=== PATIENT | female | born 1985 | race Caucasian/White ===

== ENCOUNTER 2019-11-11 04:53 | Emergency (ER) | payer BC, OTHER, MEDICAID ==
[~2019-11-11] VITALS: Ht 154.9 cm; Wt 104.3 kg
[2019-11-11] MEDS ORDERED: HYDROCODON-ACE1 EAC8 PO (05:12)
[2019-11-11] MEDS ORDERED: CEPHALEXIN500 MG PO (05:12)
[2019-11-11 05:18] VITALS: BP 145/66
== END 2019-11-11 05:18 | disposition home or self-care (01) ==
LOC: M.ERS 04:53
DX: K08.89 Other specified disorders of teeth and supporting structures (principal); Z88.0 Allergy status to penicillin

== ENCOUNTER 2021-07-23 02:36 | Emergency (ER) | payer BC, MEDICAID ==
[~2021-07-23] VITALS: Ht 154.9 cm; Wt 108.9 kg
[~2021-07-23 02:36] MED LIST: CEPHALEXIN500 MG PO; HYDROCODON-ACE1 EAC8 PO
[2021-07-23 03:00] LABS: URINE BILIRUBIN NEGATIVE (Negative); URINE BLOOD NEGATIVE (Negative); URINE CLARITY CLEAR; URINE COLOR STRAW; URINE GLUCOSE-RANDOM NEGATIVE (Negative); URINE KETONES NEGATIVE (Negative); URINE LEUKOCYTES-REFLEX TRACE (Negative); URINE NITRITE-REFLEX NEGATIVE (Negative); URINE PROTEIN NEGATIVE (Negative); URINE SPECIFIC GRAVITY 1.015 (1.005-1.030); URINE UROBILINOGEN 0.2 E.U./dl (0.2-1.0)
[2021-07-23 03:05] LABS: HEMOGLOBIN 7.9 gm/dL (12.0-15.0); MCHC 29.3 g/dL (28.0-37.0); MCV 58.1 fL (80.0-100.0); MPV 8.4 fl. (7.2-11.1); RBC 4.64 mil/uL (4.20-5.00); RDW-CV 19.1 % (10.5-14.5); WBC 8.4 thou/uL (4.0-11.0)
[2021-07-23 03:19] LABS: CALCIUM 8.1 mg/dL (8.5-10.1); CREATININE 0.9 mg/dL (0.6-1.3); POTASSIUM 3.8 mmol/L (3.5-5.1)
[2021-07-23 03:24] LABS: ALBUMIN 3.5 g/dL (3.4-5.0); TOTAL BILIRUBIN 0.3 mg/dL (<0.1-1.0); TOTAL PROTEIN 7.8 g/dL (6.4-8.2)
[2021-07-23 03:46] LABS: SQUAMOUS >10 Many /LPF (0-3)
[2021-07-23 03:47] LABS: CASTS None Seen /LPF (None Seen); URINE WBC-REFLEX 6-15 Few /HPF (0-5)
[2021-07-23 03:48] LABS: BACTERIA-REFLEX 1-9 Few /HPF (None Seen); CRYSTALS None Seen /LPF (None Seen); URINE RBC 0-2 Rare /HPF (0-2)
[2021-07-23] MEDS ORDERED: HYDROCODON-ACE1 EAC7 PO (05:19)
[2021-07-23] MEDS ORDERED: ZOFRAN ODT4 MG PO (05:19)
[2021-07-23] MEDS ORDERED: FERROUS GLUCON324 M2 PO (05:19)
[2021-07-23 05:36] VITALS: BP 134/56
== END 2021-07-23 05:37 | disposition home or self-care (01) ==
LOC: M.ERS 02:36
PROVIDERS: Personal Emergency Response Attendant
DX: K80.70 Calculus of gallbladder and bile duct without cholecystitis without obstruction (principal); Z88.0 Allergy status to penicillin

== ENCOUNTER → 2021-08-08 | Outpatient (CLI) | payer BC, OTHER, MEDICAID ==
[~2021-08-08] MED LIST changes: +FERROUS GLUCON324 M2 PO; +HYDROCODON-ACE1 EAC7 PO; +NOHOMEMEDICATIONS; +NORCO5 PO; +ZOFRAN ODT4 MG PO
== END ==
LOC: M.LAB 07:59
PROVIDERS: ATTEND Surgery
DX: Z01.812 Encounter for preprocedural laboratory examination (principal); Z20.822 Contact with and (suspected) exposure to COVID-19

== ENCOUNTER → 2021-08-09 | Day surgery (SDC) | payer BC, OTHER, MEDICAID ==
[2021-08-09 09:33] LABS: HEMOGLOBIN 8.3 gm/dL (12.0-15.0); MCH 17.3 pg (26.0-34.0); MCHC 29.7 g/dL (28.0-37.0); MCV 58.1 fL (80.0-100.0); MPV 8.7 fl. (7.2-11.1); RBC 4.81 mil/uL (4.20-5.00); RDW-CV 19.6 % (10.5-14.5); WBC 5.5 thou/uL (4.0-11.0)
[2021-08-09 09:52] LABS: CALCIUM 8.1 mg/dL (8.5-10.1); CREATININE 0.9 mg/dL (0.6-1.3)
--- NOTE | 2021-08-11 11:09 | OP ---
[facility] [address] [place] [address] OPERATIVE REPORT Name: LUZ DELAROSA Room: [facility]#: [id number] Admission: 08/09/21 Attend Phys: Jorge West Discharge: Date of : 85 Report #: [id number] THIS REPORT FOR: cc: Tish Ellison Linda J. DO Patterson,Jorge Baird MD ~ DATE OF SURGERY: 08/09/2021 PREOPERATIVE DIAGNOSIS: Symptomatic cholelithiasis. POSTOPERATIVE DIAGNOSIS: Symptomatic cholelithiasis. OPERATION: Laparoscopic cholecystectomy. SURGEON: Jorge West MD ANESTHESIA: General. ESTIMATED BLOOD LOSS: Minimal. SPECIMENS: Gallbladder. DESCRIPTION OF PROCEDURE: After informed consent was obtained, the patient was brought to the operating room and placed supine. SCDs were placed and working, preoperative antibiotics were administered, general anesthesia was induced. The abdomen was prepped and draped in the usual sterile fashion. A 10 mm incision was made above the umbilicus. Fascia was incised and a trocar was placed. Pneumoperitoneum was established. Three right upper quadrant 5 mm ports were placed. Gallbladder was grasped at the fundus and retracted cephalad. Infundibulum was grasped and retracted laterally. I dissected out the cystic duct and cystic artery. Cystic plate was fully identified. Cystic duct and artery were clipped and ligated, leaving 2 clips on the remaining duct and 1 on the remaining artery. Gallbladder was then taken off the liver bed with electrocautery. It was placed into an Endopouch and removed. Fascia was then closed with a [id number] 0 Vicryl. Skin was closed with 4-0 Monocryl. Incisions were dressed with Steri-Strips. COMPLICATIONS: None. DISPOSITION: The patient was taken to recovery in satisfactory condition. <ELECTRONICALLY SIGNED> By: Jorge West MD 08/11/21 1109 [id number] [id number] West MD /nt
--- NOTE | 2021-08-13 11:07 | PATH ---
[facility] [address] [place] [address] PATHOLOGY RPT PROCEDURE Name: ISAURALUZ RIVERA Room: [facility]#: [id number] Admission: 08/09/21 Date of : 85 Discharge: Report #: [id number] Path Case #: [id number] [facility] Accession Number: [id number] . 01 Material submitted: . gallbladder - GALLBLADDER . 01 Clinical history: . LAPROSCOPIC CHOLECYSTECTOMY . 02 Diagnosis: Gallbladder: - Chronic cholecystitis and cholesterolosis. (ARPITA:[facility]; 08/12/2021) [facility] 08/12/[address] [place] [address] . 02 Electronically signed: . Azael Clark MD, Pathologist NPI- [id number] . 01 Gross description: . Fixative: Formalin Labeled: Gallbladder Specimen received: Intact gallbladder Dimensions: 5.0 x 2.5 x 2.0 cm Serosa: [place] and smooth with a mild amount of adipose tissue Lymph node: Not identified Mucosa: Velvety, bile stained with mild yellow stippling Average wall thickness: Up to 0.5 cm Calculi: None present Abnormalities: None identified . A1- Hat Measurer body, fundus, and the cystic duct margin. ([facility]; 08/09/2021) NRI/NRI 08/09/2021 1845 Local . 02 Pathologist provided ICD-10: K81.1, K82.4 . 02 CPT . 177047 Specimen Comment: A courtesy copy of this report has been sent to [phone] Specimen Comment: [phone] Specimen Comment: Report sent to / DR JOLLEY Specimen Comment: A duplicate report has been generated due to demographic updates. Performed at: [address] [address] PATHOLOGY RPT PROCEDURE Name: LUZ DELAROSA Room: [facility]#: [id number] Admission: 08/09/21 Date of : 85 Discharge: Report #: [id number] Path Case #: [id number] [address], [place] [id number] MD Josue Smith MD Phone: [phone] Performed at: [address] [id number] MD Azael Clark MD Phone: [phone]
== END | disposition home or self-care (01) ==
LOC: M.SUR 08:31
PROVIDERS: ATTEND Surgery
DX: K81.1 Chronic cholecystitis (principal); R10.11 Right upper quadrant pain; Z98.890 Other specified postprocedural states; Z79.899 Other long term (current) drug therapy; Z88.0 Allergy status to penicillin